=== PATIENT | female | born 1945 | race Caucasian/White ===

== ENCOUNTER 2024-02-24 05:40 | Day surgery (SDC) | payer MEDICARE ==
[2024-02-20 15:20] VITALS: BP 139/77
[2024-02-24] VITALS (10 sets, daily range): BP systolic 98–152; BP diastolic 46–75
[~2024-02-24] VITALS: Ht 157.5 cm; Wt 100.0 kg
[~2024-02-24 05:40] MED LIST: CYMBALTA30 MG PO; LACTATED RINGER'S 1,000 ML IV SCH; MELATONIN10 M2 PO; PHENTERMINE HCL15 MG PO; TOPIRAMATE25 MG PO; TYLENOL EXTRA500 MG PO; ZESTRIL20 MG PO
[2024-02-24] MEDS ORDERED: FAMOTIDINE 20 MG/ 2 ML VIAL ONE (05:45)
[2024-02-24] MEDS ORDERED: METOCLOPRAMIDE HCL 10 MG/2 ML SDV ONE (05:45)
[2024-02-24] MEDS ORDERED: propofoL 200 MG/20 ML VIAL ONE (05:45)
[2024-02-24] MEDS ORDERED: ondansetron HCL 4 MG/2 ML VIAL ONE (05:45)
[2024-02-24] MEDS ORDERED: fentaNYL citrate 100 MCG/2 ML VIAL ONE (05:45)
[2024-02-24] MEDS ORDERED: KETOROLAC TROMETHAMINE 30 MG/ML VIAL ONE (05:45)
[2024-02-24] MEDS ORDERED: MIDAZOLAM HCL 2 MG/2 ML VIAL ONE (05:45)
[2024-02-24] MEDS ORDERED: DEXAMETHASONE SOD PHOS 4 MG/ML VIAL ONE (05:45)
[2024-02-24] MEDS ORDERED: LACTATED RINGER'S 1,000 ML IV ONE (05:45)
[2024-02-24] MEDS ORDERED: KETAMINE in NS 50 MG/5 ML SYR ONE (05:46)
[2024-02-24] MEDS ORDERED: Ropivacaine HCl 0.5% 30 ML VIAL ONE (05:47)
[2024-02-24] MEDS ORDERED: LIDOCAINE HCL 2% 5 ML SDV ONE (05:49)
[2024-02-24] MEDS ORDERED: Ropivacaine HCl 20 MG/10 ML AMP ONE (06:12)
[2024-02-24] MEDS ORDERED: DULOXETINE HCL 30 MG CAP ONE (06:56)
[2024-02-24] MEDS ORDERED: GABAPENTIN 600 MG TAB PO SCH (07:00)
[2024-02-24] MEDS ORDERED: LIDOCAINE HCL 1% 5 ML SDV INJ ONE (07:00)
[2024-02-24] MEDS ORDERED: ROPIVACAINE IN 0.9% SOD CHL/PF 545 ML ELS.PMP.HR IRRIGATION SCH (07:00)
[2024-02-24] MEDS ORDERED: ondansetron HCL 4 MG TAB PO SCH (07:00)
[2024-02-24] MEDS ORDERED: CEFAZOLIN SODIUM 2 GM/20 ML SYR IV SCH ×2 (07:00→15:00)
[2024-02-24] MEDS ORDERED: INTRA-ARTICULAR ANALGESIC INJECTION XX SCH (07:00)
[2024-02-24] MEDS ORDERED: IBLOOD GLUCOSE TEST STRIP 1 EA TEST VI PRN ×2 (07:00→08:00)
[2024-02-24] MEDS ORDERED: OXYCODONE HCL 5 MG TAB PO PRN (07:00)
[2024-02-24] MEDS ORDERED: TRANEXAMIC ACID 2,000 MG in SODIUM CHLORIDE 0.9% 100 ML IV SCH (07:00)
[2024-02-24] MEDS ORDERED: OXYCODONE HCL 5 MG TAB PO SCH (07:00)
[2024-02-24] MEDS ORDERED: PANTOPRAZOLE SODIUM 40 MG TABEC PO SCH (07:00)
[2024-02-24] MEDS ORDERED: DIGOXIN 500 MCG/2 ML AMP ONE (07:27)
[2024-02-24] MEDS ORDERED: ATROPINE SULFATE 1 MG/ML VIAL ONE (07:52)
--- NOTE | 2024-02-24 07:56 | NUR ---
PT GONE FOR PROCEDURE. PROVIDED PRAYER.
[2024-02-24] MEDS ORDERED: droPERidol 5 MG/2 ML VIAL IV PRN (08:00)
[2024-02-24] MEDS ORDERED: ondansetron HCL 4 MG/2 ML VIAL IV PRN (08:00)
[2024-02-24] MEDS ORDERED: MORPHINE SULFATE 10 MG/ML VIAL IV PRN (08:00)
[2024-02-24] MEDS ORDERED: PROCHLORPERAZINE EDISYLATE 10 MG/2 ML VIAL IV PRN (08:00)
[2024-02-24] MEDS ORDERED: fentaNYL citrate 50 MCG/ML SDV IV PRN (08:00)
[2024-02-24] MEDS ORDERED: METOCLOPRAMIDE HCL 10 MG/2 ML SDV IV PRN (08:00)
[2024-02-24] MEDS ORDERED: NALOXONE HCL 0.4 MG SYR IV PRN (08:00)
--- NOTE | 2024-02-24 08:18 | NUR ---
02/24/24 0818 Meg Rahman ON-Q PUMP SET AT 4.
[2024-02-24] MEDS ORDERED: DULOXETINE HCL 30 MG CAP PO SCH (09:00)
--- NOTE | 2024-02-24 09:09 | NUR ---
Patient returns from PACU via bed. Report taken from AIDEN Weaver. Patient had some bradycardia during surgery, therefore patient will be admitted to the floor. Patient states that she feels well. She denies any pain or nausea. She denies any shortness of breath or chest pain. her spinal is slowly resolving. she is able to move her toes. she has a bandage to right knee and is clean, dry, and intact. On-Q in place at running at 4. Water and crackers provided to patient. Patient does have tele in place. EKG being done at this time.
[2024-02-24] MEDS ORDERED: TRANEXAMIC ACID 2,000 MG in SODIUM CHLORIDE 0.9% 100 ML IV ONE ×2 (09:11→10:00)
--- NOTE | 2024-02-24 10:42 | OR ---
[facility] [address] [place], [place] [address] Signed DATE OF OPERATION: 02/24/2024 SURGEON: Chey Waters MD PREOPERATIVE DIAGNOSIS: Severe degenerative joint disease, right knee. POSTOPERATIVE DIAGNOSIS: Severe degenerative joint disease, right knee. PROCEDURE PERFORMED: Right total knee arthroplasty. OFFICE CHAIR ASSEMBLER: Nancy Ernst PA-C. Nancy was present and critical for all portions of procedure. ANESTHESIA: Spinal. BLOOD LOSS: 160 mL. IMPLANTS: Mitch Triathlon size 4 with a 10 mm polyethylene and 32 mm patella. BRIEF HISTORY: Parvin is a 78-year-old female with progressive worsening of osteoarthritis in both knees. Nonoperative treatment was unsuccessful in managing her pain. She wished to proceed with operative. Once preoperative clearance was obtained she was taken to the operating room. After adequate anesthesia she was placed on the operating room table. All downside pressure points were well padded. The right hip was placed on hip bump. The leg was then prepped and draped in the standard sterile fashion. The knee was approached through standard anterior midline incision. This was carried through skin and subcutaneous tissue. A low mid vastus arthrotomy was performed. The infrapatellar fat pad was excised. MCL was elevated of a sleeve around the posteromedial corner. The anterior horns of menisci were transected as was the ACL. PCL was found to be intact. The computer arrays were placed in the medial femoral condyle and proximal tibia. The leg was then registered with computer followed by the fine anatomic points of the knee. The four ligamentous poses were taken. The femur was moved proximally and the tibia was Electronically Signed By: CHEY WATERS MD 02/24/24 1042 PATIENT NAME: PARVIN BROCK OPERATIVE REPORT DATE OF : 47 REPORT #: [id number] PHYSICIAN: CHEY WATERS MD PCP: ROSY REYNA REPORT IS CONFIDENTIAL AND NOT TO BE RELEASED WITHOUT AUTHORIZATION [facility] [address] [place], [place] [address] Signed placed in some varus. The robot was then brought in, four straight cuts and two angled cuts were made with care taken to protect the surrounding soft tissues including the patellar tendon and MCL. The bony remnants removed as were any remaining osteophytes. Posterior osteophytes removed off the femur. No release was performed. The trials were then positioned. Knee was taken from 0-120 degrees with good stability throughout. The patella was cut, sized and drilled for 32 mm patella. It was noted to track well. The distal femoral drill holes were completed and the proximal tibia was finished using the keel punch. The implants were selected. Once they were on the table, the tibia was impacted into position until it was seated flush with the cut. The femur was impacted. The knee was extended and loaded. The patella was clamped into position and again the knee was taken through range of motion. The patella tracked well. The knee was copiously irrigated with one bottle of Surgiphor followed by normal saline. Periarticular soft tissues were injected with 100 mL ropivacaine and Toradol mixture. The On-Q pain pump was percutaneously placed into the adductor canal from the suprapatellar pouch. The arthrotomy was then closed using combination of #2 FiberWire, #2 Stratafix, 0 Stratafix for the subcutaneous tissue and radha for the skin. Wound was dressed with an Acticoat-7 dressing, ABD, and Eron wrap. She tolerated the procedure well. Although there were some episodes of bradycardia during the procedure. Chey Waters MD BA/MODL /[id number] Copies: ~ Electronically Signed By: CHEY WATERS MD 02/24/24 1042 PATIENT NAME: PARVIN BROCK OPERATIVE REPORT DATE OF : 47 REPORT #: [id number] PHYSICIAN: CHEY WATERS MD PCP: ROSY REYNA REPORT IS CONFIDENTIAL AND NOT TO BE RELEASED WITHOUT AUTHORIZATION
--- NOTE | 2024-02-24 10:59 | NUR ---
Hourly rounding on patient. She is alert and conversing with family members at bedside. patient still denies any pain in her right knee. Her spinal is resolved. Dressing to knee is clean, dry, and intact. Patient was able to void 500ml. PT was contacted and they will be here aroud 12 to assess patient. She is still denying any chest pain or shortness of breath. call light within reach. bed in lowest position
--- NOTE | 2024-02-24 12:14 | NUR ---
Patient just got back from working with physical therapy, so hourly rounding is slightly late. Patient has passed physical therapy and states that she did well. patient only reports slight pain to her right knee when she is walking on it, but otherwise has no pain. She denies any nausea and has been eating a drinking well without complication. Her lunch is at bedside and she is very eagar to eat. Patient was positioned back in bed with food and drink within reach. vital signs obtained. patient denies any needs at this time. call light within reach, bed in lowest position
--- NOTE | 2024-02-24 12:55 | NUR ---
Hourly rounding on patient. She still states that she feels well. She is requesting more ice in her water. She still denies pain to her right knee, states she is having pain in her left knee which also needs replaced. She has eaten lunch. Vital signs obtained and wdl. I updated patient that she will go to the medical-surgical floor and not the ICU, but we are waiting for a room to open up for her and she is agreeable to this. patient denies any needs at this time. Bed in lowest position, call light within reach.
--- NOTE | 2024-02-24 13:56 | NUR ---
Hourly rounding on patient. She states that her pain is increasing. She states that it is a 6/10 which is "tolerable" to her. I let her know that I will get her some medication. We have a room for her on the medical-surgical floor and it is ready for her. vital signs obtained. patient medicated with 5mg oxycodone.Ice and water replaced in cryo-cuff. She denies any other needs at this time. bed in lowest position, call light within reach.
--- NOTE | 2024-02-24 14:20 | NUR ---
patient taken to the medical-surgical floor via bed with all of her belongings. report was given to AIDEN Bermudez. Patient was able to ambulate to the restroom upon arrival with a steady gait. Patient reports pain to knee, but tolerable when walking.
[2024-02-24] MEDS ORDERED: ACETAMINOPHEN 500 MG TAB PO SCH (15:00)
[2024-02-24] MEDS ORDERED: GABAPENTIN 300 MG CAP PO SCH (15:00)
[2024-02-24 15:05] LABS: BASOPHILS 0.1 % (0-2); HEMATOCRIT 34.1 % (35.0-50.0); LYMPHOCYTES 6.4 % (24-44); MCH 26.4 (27-36); MCHC 32.1 g/dl (30-36); MCV 82.1 fl (81-99); MONOCYTES 1.8 % (0-12); NEUTROPHILS 91.7 % (39-80); PLATELET COUNT 332 K/uL (140-440); RBC 4.16 M/ul (4.3-5.7); RDW 16.4 (10.5-15.0)
[2024-02-24 15:26] LABS: ALBUMIN 2.6 g/dL (3.4-5.0); ALBUMIN/GLOBULIN RATIO 0.63 (1.1-2.4); ALKALINE PHOSPHATASE 70 U/L (46-116); ALT (SGPT) 21 U/L (14-59); ANION GAP 16.7 (7-21); AST (SGOT) 15 U/L (15-37); BILIRUBIN, TOTAL 0.3 ng/dL (0.2-1.0); BUN/CREATININE RATIO 8.82 (6.0-28.6); CALCIUM 8.6 mg/dL (8.5-10.1); CARBON DIOXIDE 24 mmol/L (21-32); CHLORIDE 101 mmol/L (98-107); CREATININE, SERUM 1.02 mg/dL (0.55-1.02); GLOMERULAR FILTRATION RATE,EST 57 mL/min (>60); MAGNESIUM 1.9 mg/dL (1.8-2.4); PHOSPHORUS, INORGANIC 3.4 mg/dL (2.5-4.9); POTASSIUM 4.7 mmol/L (3.5-5.1); PROTEIN, TOTAL 6.7 g/dL (6.4-8.2); UREA NITROGEN 9 mg/dL (7-18)
--- NOTE | 2024-02-24 19:10 | NUR ---
RECIEVED REPORT FROM AIDEN PIRES. PATIENT AWAKE IN BED. PATIENT DENIES PAIN. ON-Q PUMP AT 4ML/HR. TELE #[address], SINUS RHYTHM, HR 60s. CRYOCUFF IN PLACE. PATIENT REQUESTS CHOCOLATE PUDDING, CHOCOLATE PUDDING PROVIDED. PATIENT DENIES ADDITIONAL NEEDS AT THIS TIME. CALL LIGHT IN REACH.
[2024-02-24] MEDS ORDERED: MAGNESIUM CHLORIDE 64 MG TABCR PO ONE (20:45)
[2024-02-24] MEDS ORDERED: SENNOSIDES 1 TAB PO SCH (21:00)
--- NOTE | 2024-02-24 21:26 | NUR ---
IN ROOM TO ASSESS PATIENT. ASSESSMENT COMPLETED. MEDICATION ADMINISTERED, SEE E-MAR. PATIENT DENIES ADDITIONAL NEEDS AT THIS TIME. CRYOCUFF ICE BIN REFILLED BY NON DESTRUCTIVE TESTING INSPECTOR, CRYOCUFF IN PLACE, BING HOSE IN PLACE, FOOT PUMPS IN PLACE. CALL LIGHT IN REACH.
--- NOTE | 2024-02-24 23:24 | NUR ---
IN ROOM TO ADMINISTER MEDICATION, SEE E-MAR. PATIENT AMBULATES TO THE BATHROOM WITH FWW AND BACK TO BED WITHOUT DIFFICULTY. PATIENT STEADY ON FEET. PATIENT ABLE TO VOID WITHOUT DIFFICULTY. CRYOCUFF IN PLACE, FOOT PUMPS IN PLACE. PATIENT DENIES ADDITIONAL NEEDS AT THIS TIME. CALL LIGHT IN REACH.
--- NOTE | 2024-02-25 00:46 | NUR ---
IN ROOM TO ROUND ON PATIENT. PATIENT RESTING ON BACK WITH EYES CLOSED, RESPIRATIONS EVEN AND UNLABORED. NO NEEDS IDENTIFIED AT THIS TIME. CRYOCUFF IN PLACE, FOOT PUMPS IN PLACE. CALL LIGHT IN REACH.
[2024-02-25 01:33] VITALS: BP 129/58
--- NOTE | 2024-02-25 02:50 | NUR ---
CONTACTED PROVIDER REGARDING PATIENT'S BRADYCARDIA. TELE MONITOR #1, CAPTURED MORE THAN 25 EPISODES OF EXTREME BRADYCARDIA, WHERE THE PATIENT'S HR WAS DROPPING INTO THE 30'S AND RETURNING TO MID 40'S. ORDER FOR NS @ 125ML/HR RECIEVED, VERIFIED BY REPEAT BACK. PROVIDER REQUESTED A CALL BACK IF THE PAITENT BECAME SYMPTOMATIC FROM THE BRADYCARDIA.
[2024-02-25] MEDS ORDERED: SODIUM CHLORIDE 0.9% 1,000 ML IV SCH (03:15)
--- NOTE | 2024-02-25 03:19 | NUR ---
IV FLUIDS STARTED PER PHONE ORDER FROM . IV WNL, PT TOLERATING WELL. NO OTHER NEEDS, CALL LIGHT IN REACH, BED ALARM ON.
--- NOTE | 2024-02-25 04:38 | NUR ---
NOTIFIED BY CCU STAFF THAT THE PT HEART MONITOR SHOWED A 2.4 SECOND PAUSE. PT SLEEPING AT THIS TIME. CALL LIGHT IN REACH.
[2024-02-25 05:11] VITALS: BP 132/53
--- NOTE | 2024-02-25 05:25 | NUR ---
IN ROOM TO ROUND ON PATIENT. ASSESSMENT COMPLETED. COPYMAN IN ROOM ASSISTING PATIENT TO BATHROOM. NO OTHER NEEDS IDENTIFIED AT THIS TIME.
[2024-02-25 05:42] LABS: HEMATOCRIT 30.3 % (35.0-50.0); HEMOGLOBIN 9.8 g/dL (12.0-18.0); MCH 26.7 (27-36); MCHC 32.5 g/dl (30-36); MCV 82.1 fl (81-99); MONOCYTES 7.7 % (0-12); NEUTROPHILS 81.3 % (39-80); PLATELET COUNT 284 K/uL (140-440); RBC 3.69 M/ul (4.3-5.7); RDW 15.5 (10.5-15.0)
[2024-02-25 06:10] LABS: ANION GAP 11.9 (7-21); BUN/CREATININE RATIO 17.85 (6.0-28.6); CALCIUM 8.5 mg/dL (8.5-10.1); CARBON DIOXIDE 26 mmol/L (21-32); CHLORIDE 104 mmol/L (98-107); CREATININE, SERUM 0.84 mg/dL (0.55-1.02); DIGOXIN 0.9 ng/dL (0.9-2.0); GLOMERULAR FILTRATION RATE,EST 72 mL/min (>60); MAGNESIUM 2.2 mg/dL (1.8-2.4); POTASSIUM 4.9 mmol/L (3.5-5.1); TSH, 3RD GENERATION 0.696 uIU/mL (0.358-3.740); UREA NITROGEN 15 mg/dL (7-18)
--- NOTE | 2024-02-25 07:41 | NUR ---
PT REPORT RECIEVED FROM DEPUTY SHERIFF K9 HANDLER RN. PT AWAKE LAYING IN BED WATCHING TV. DR. WYLIE SPOKE WITH PT ABOUT POC MOVING FORWARD AND PT WAS AGREEABLE. RN SPOKE WITH DR. WYLIE ABOUT PT ONQ PUMP SETTINGS AND HE CONFIRMED TO LEAVE THE SETTINGS AT 4 UNLESS PT PAIN INCREASES. PT HAS NO OTHER CONCERNS AT THIS TIME CALL LIGHT WITHIN REACH.
[2024-02-25] MEDS ORDERED: Rivaroxaban 10 MG TAB PO SCH (08:00)
[2024-02-25] MEDS ORDERED: cefuroxime axetiL 250 MG TAB PO SCH (09:00)
--- NOTE | 2024-02-25 09:00 | NUR ---
FILLED CRYO CUFF. DID MORNING VITALS SIGNS. PATIENT BRUSHED HER OWN DENTURES AND PUT HER DENTURE ADHENSIVE.
[2024-02-25 09:10] VITALS: BP 137/55
--- NOTE | 2024-02-25 09:34 | NUR ---
MED REC COMPLETE
[2024-02-25 10:00] VITALS: BP 137/55
--- NOTE | 2024-02-25 11:27 | NUR ---
Spoke with pt and her daughter. Dr. Best in the room and discussing discharge. Pt lives with her daughter and her other daughter is staying with her. Pt lives in a home with a ramp. She has multiple DME and appts set to fu with Dr. Waters and PT. Daughters help her and she does get food stamps and uses a food bank. She denies running out of food or money shortage. She is well cared for by her daughters. Home today.
[2024-02-25] MEDS ORDERED: CEFUROXIME250 MG PO (11:52)
[2024-02-25] MEDS ORDERED: XARELTO10 MG PO (11:52)
[2024-02-25] MEDS ORDERED: DULOXETINE HCL30 MG PO (11:53)
[2024-02-25] MEDS ORDERED: OXYCODONE HCL5 MG PO (11:53)
[2024-02-25] MEDS ORDERED: SENNA LAX8.6 MG PO (11:53)
--- NOTE | 2024-02-25 12:51 | NUR ---
PATIENT CALLED SHE NEEDED TO USE THE BATHROOM BEFORE SHE ATE LUNCH DAUGHTER IN ROOM. CHANGED TAPED ATTEND. PATIENT NEEDS NOTHING AT THIS TIME CALL LIGHT WITH IN REACH. PATIENT UP IN CHAIR.
[2024-02-25 12:56] VITALS: BP 113/65
--- NOTE | 2024-02-25 22:58 | EKG ---
[facility] [address] [facility] [place] [address] Signed Sinus bradycardia with 1st degree AV block Septal infarct , age undetermined Abnormal ECG No previous ECGs available Confirmed by Iwona Blanchard MD () on 02/25/2024 10:57:57 PM Electronically Signed By: IWONA BLANCHARD MD 02/25/24 2258 PATIENT NAME: PARVIN BROCK Electrocardiogram DATE OF : 47 PHYSICIAN: IWONA BLANCHARD MD REPORT #: [id number] REPORT IS CONFIDENTIAL AND NOT TO BE RELEASED WITHOUT AUTHORIZATION
--- NOTE | 2024-03-01 12:14 | EKG ---
[facility] [address] [facility] [place] [address] Signed Sinus rhythm with sinus arrhythmia with 1st degree AV block Inferior infarct , age undetermined Anteroseptal infarct , age undetermined Abnormal ECG No previous ECGs available Confirmed by Leonel Noonan MD ([id number]) on 03/01/2024 12:14:01 PM Electronically Signed By: LEONEL NOONAN DO 03/01/24 121 PATIENT NAME: VINODPARVIN ELIZABETH OWEN Electrocardiogram DATE OF : 47 PHYSICIAN: LEONEL NOONAN DO REPORT #: [id number] REPORT IS CONFIDENTIAL AND NOT TO BE RELEASED WITHOUT AUTHORIZATION
== END 2024-02-25 13:28 | disposition home or self-care (01) ==
LOC: DS 05:40 → MS 14:30 → DS 02-25 13:28
PROVIDERS: Family Medicine; ATTEND Specialist
PROC: 0SRC0JZ Replacement of Right Knee Joint with Synthetic Substitute, Open Approach (ICD-10-PCS; principal; 2024-02-24 07:00)
DX: M17.0 Bilateral primary osteoarthritis of knee (principal); I10 Essential (primary) hypertension; Z79.899 Other long term (current) drug therapy; Z88.5 Allergy status to narcotic agent
CPT/HCPCS: 01400; 36415; 64447; 64450; 73560; 76942; 80048; 80053; 80162; 83735; 84100; 84443; 85025; 93005; 93010; 96360; 96361; 96374; 97116; 97161; 97530; A9270; C1713; C1776; J0461; J0690; J1100; J1160; J1885; J2003; J2250; J2405; J2704; J2765; J2795; J3010; J3490; J7030; J7121; J7999